=== PATIENT | female | born 1965 | race Two or more races ===

== ENCOUNTER 2019-02-09 14:35 | Emergency (ER) | payer SELFPAY ==
[~2019-02-09] VITALS: Ht 160 cm; Wt 77.1 kg
[~2019-02-09 14:35] MED LIST: ALBU8.5H6 IH
[2019-02-09 15:09] VITALS: BP 121/69
--- NOTE | 2019-02-09 15:10 | PHYS DOC ---
Past Medical History Past Medical History: No Pertinent History Past Surgical History: No Surgical History Alcohol Use: None Drug Use: None Adult General Chief Complaint Chief Complaint: LOWER BACK PAIN OR INJURY HPI HPI Patient is a 53 year old female presents to ED complaining of low back pain 2 weeks. Patient complains of pain from left lower back that radiates down left leg. Describes the pain as sharp. Rates the pain as 6 out of 10. Patient able ambulate without assistance. No traumatic injury. Denies bowel/bladder changes, saddle anesthesia, weakness, abdominal pain, chest pain, shortness of breath or fever. Review of Systems Review of Systems Constitutional: Denies fever or chills [] Eyes: Denies change in visual acuity, redness, or eye pain [] HENT: Denies nasal congestion or sore throat [] Respiratory: Denies cough or shortness of breath [] Cardiovascular: No additional information not addressed in HPI [] GI: Denies abdominal pain, nausea, vomiting, bloody stools or diarrhea [] : Denies dysuria or hematuria [] Musculoskeletal: Complains of back pain. Denies joint pain [] Integument: Denies rash or skin lesions [] Neurologic: Denies headache, focal weakness or sensory changes [] All other systems were reviewed and found to be within normal limits, except as documented in this note. Current Medications Current Medications Current Medications Medications (Trade) Dose Ordered Sig/Sanju Start Time Stop Time Status Last Admin Dose Admin Ketorolac Tromethamine (Toradol 30mg Vial) 30 mg 1X ONCE 02/09/19 15:15 02/09/19 15:16 DC 02/09/19 15:28 30 MG Allergies Allergies Allergies Coded Allergies Type Severity Reaction Last Updated Verified No Known Drug Allergies 09/18/13 No Physical Exam Physical Exam Constitutional: Well developed, well nourished, no acute distress, non-toxic appearance. [] HENT: Normocephalic, atraumatic Neck: Normal range of motion, no tenderness, supple, no stridor. [] Cardiovascular:Heart rate regular rhythm, no murmur [] Lungs & Thorax: Bilateral breath sounds clear to auscultation [] Abdomen: Bowel sounds normal, soft, no tenderness, no masses, no pulsatile masses. [] Skin: Warm, dry, no erythema, no rash. [] Back: mild lumbar paraspinal tenderness, FROM. NV intact. No overlying skin changes. no CVA tenderness. [] Extremities: No tenderness, no cyanosis, no clubbing, ROM intact, no edema. [] Neurologic: Alert and oriented X 3, normal motor function, normal sensory function, no focal deficits noted. DTR's intact. [] Psychologic: Affect normal, judgement normal, mood normal. [] Current Patient Data Vital Signs Vital Signs Date Time Temp Pulse Resp B/P (MAP) Pulse Ox O2 Delivery O2 Flow Rate FiO2 02/09/19 15:09 98.9 75 20 121/69 (86) 98 Room Air 98.9 EKG EKG [] Radiology/Procedures Radiology/Procedures []PROCEDURE: LUMBAR SPINE 2-3V Lumbar spine, 3 views, 02/09/2019: HISTORY: Injury, low back pain The lumbar vertebral heights are well-maintained. There are degenerative changes at scattered disc spaces including L2-3 and L5-S1. There are mild degenerative changes involving the facet joints bilaterally in the lower lumbar spine. No fracture or subluxation is evident. The paraspinous soft tissues are unremarkable. IMPRESSION: 1. Mild scattered degenerative changes. 2. No acute bony abnormality is detected. Course & Med Decision Making Course & Med Decision Making Pertinent Labs and Imaging studies reviewed. (See chart for details) []Discussed imaging findings with patient. Patient's pain improved in the ED. Patient able to ambulate without assistance. No focal neural deficits. Discussed symptomatic treatment and will prescribe a short course of prednisone outpatient. Discussed follow-up with PCP this week and discussed reasons to return to the ED. Patient understands and agrees with plan. Family at bedside. Dragon Disclaimer Dragon Disclaimer This electronic medical record was generated, in whole or in part, using a voice recognition dictation system. Departure Departure Impression: Primary Impression: Sciatic leg pain Disposition: 01 HOME, SELF-CARE Condition: IMPROVED Referrals: NON,STAFF (PCP) ALLISON MCCORD II, MD, MICHAEL M MD Patient Instructions: Sciatica Scripts Prednisone (PREDNISONE) 20 Mg Tablet 2 TAB PO DAILY for 4 Days, #8 TAB Prov: ALLEY ALEXANDER 02/09/19 Tramadol Hcl (TRAMADOL HCL) 50 Mg Tablet 50 MG PO Q6HRS PRN for PAIN, #10 TAB Prov: ALLEY ALEXANDER 02/09/19 ALLEY ALEXANDER February 09, 2019 15:10
[2019-02-09] MEDS ORDERED: KETOROLAC 30 MG/ML VIAL. IM ONE (15:15)
--- NOTE | 2019-02-09 15:45 | RAD ---
Lumbar spine, 3 views, 02/09/2019: HISTORY: Injury, low back pain The lumbar vertebral heights are well-maintained. There are degenerative changes at scattered disc spaces including L2-3 and L5-S1. There are mild degenerative changes involving the facet joints bilaterally in the lower lumbar spine. No fracture or subluxation is evident. The paraspinous soft tissues are unremarkable. IMPRESSION: 1. Mild scattered degenerative changes. 2. No acute bony abnormality is detected. Electronically signed by: Maikol Garza MD (02/09/2019 3:42 PM) [facility]
[2019-02-09] MEDS ORDERED: TRAM50TA PO (15:54)
[2019-02-09] MEDS ORDERED: PRED20TA PO (15:54)
== END 2019-02-09 16:00 | disposition home or self-care (01) ==
LOC: ER 14:35
DX: M54.42 Lumbago with sciatica, left side (principal)
CPT/HCPCS: 72100; 96372; 99284; J1885